=== PATIENT | male | born 1995 | race Caucasian/White ===

== ENCOUNTER 2021-09-07 08:17 | Emergency (ER) | payer MEDICAID ==
[2021-09-07 08:36] VITALS: BP 119/77
[2021-09-07] MEDS ORDERED: bacitracin 15gm ointment TP ONE (09:10)
== END 2021-09-07 09:21 | disposition home or self-care (01) ==
LOC: ER 08:17
DX: L84 Corns and callosities (principal); F15.10 Other stimulant abuse, uncomplicated
CPT/HCPCS: 99282

== ENCOUNTER 2021-09-29 14:22 | Emergency (ER) | payer MEDICAID ==
[~2021-09-29] VITALS: Ht 165.1 cm; Wt 64.2 kg
[2021-09-29 15:20] VITALS: BP 121/77
[2021-09-29] MEDS ORDERED: acetaminophen 325mg tablet PO ONE (16:20)
--- NOTE | 2021-09-29 16:51 | NUR ---
LT ELBOW WOUND CLEAND DRESSING APPLIED
== END 2021-09-29 16:52 | disposition home or self-care (01) ==
LOC: ER 14:24
DX: M54.89 Other dorsalgia (principal); L84 Corns and callosities; M79.603 Pain in arm, unspecified; F15.90 Other stimulant use, unspecified, uncomplicated; Z56.0 Unemployment, unspecified; Z59.00 Homelessness unspecified
CPT/HCPCS: 99282